=== PATIENT | male | born 1950 | race Caucasian/White ===

== ENCOUNTER 2016-11-26 08:03 | Emergency (ER) | payer MEDICARE ==
[2016-11-26 08:13] VITALS: TEMP 98.1
--- NOTE | 2016-11-26 09:14 | ED ---
Burn/Smoke HPI - General Chief complaint: Burn/Smoke Inhalation Stated complaint: Finger burn Time Seen by Provider: 11/26/16 08:57 Source: patient, RN notes reviewed Mode of arrival: ambulatory Limitations: no limitations - History of Present Illness Initial comments: 66 -year-old male presents emergency Department chief complaint of burn to left ring finger. Patient states he was working on his car his hand was touching the car battery it heated up his ring and he burned his finger. Patient states that he just needs a ring taken off. Patient states his pain is moderate. Patient states he did rinse and wash the area. If not fighting any cream to the area. They state that there is been no other symptoms in the patient. He states he is up-to-date on his tetanus. There is been no fever or chills. Patient states he was concerned because of the burned he does not have a care for suicidal they should be evaluated. Patient denies any recent fever, chills , shortness of breath, chest pain, back pain, abdominal pain, nausea vomiting, numbness or tingling, dysuria or hematuria, constipation or diarrhea, headaches or visual changes, or any other current symptoms. - Related Data Home Medications Medication Instructions Recorded Confirmed Gemfibrozil [Gemfibrozil] 600 mg PO HS 04/11/15 11/26/16 Atorvastatin [Lipitor] 10 mg PO MOWEFR 04/14/15 11/26/16 Acetaminophen [Tylenol] 325 mg PO Q4H PRN 11/26/16 11/26/16 Cephalexin [Keflex] 500 mg PO TID 11/26/16 11/26/16 Fexofenadine HCl 180 mg PO DAILY PRN 11/26/16 11/26/16 Glucosamine Sulfate 500 mg PO DAILY 11/26/16 11/26/16 Multivitamin [Men's Multi-Vitamin] 1 tab PO DAILY 11/26/16 11/26/16 Wheat Dextrin [Benefiber] 1 each PO DAILY PRN 11/26/16 11/26/16 Allergies Allergy/AdvReac Type Severity Reaction Status Date / Time No Known Allergies Allergy Verified 11/26/16 08:31 Review of Systems ROS Statement: Those systems with pertinent positive or pertinent negative responses have been documented in the HPI. ROS Other: All systems not noted in ROS Statement are negative. Past Medical History Past Medical History: Hyperlipidemia Additional Past Medical History / Comment(s): LEFT HERNIA History of Any Multi-Drug Resistant Organisms: None Reported Past Surgical History: Appendectomy, Hernia Repair Additional Past Surgical History / Comment(s): RT HERNIA, SKIN TAG REMOVAL Past Anesthesia/Blood Transfusion Reactions: No Reported Reaction Past Psychological History: No Psychological Hx Reported Smoking Status: Never smoker Past Alcohol Use History: None Reported Past Drug Use History: None Reported - Past Family History Father Family Medical History: Diabetes Mellitus General Exam - General Exam Comments Initial Comments: General: The patient is awake and alert, in no distress, and does not appear acutely ill. Neck: The neck is supple, there is no tenderness. Cardiovascular: There is a regular rate and rhythm. No murmur, rub or gallop is appreciated. Respiratory: Lungs are clear to auscultation, respirations are non-labored, breath sounds are equal. No wheezes, stridor, rales, or rhonchi. Musculoskeletal: Sensation intact with 2+ pulses. Left upper extremity. Full range of motion of the left wrist left hand and all fingers. Patient does appear to have circumferential second degree burn to the left ring finger. No sign of infection no drainage. Appears to be clean and healing. There is a blister to the lateral aspect of the right middle finger as well. Neurological: CN II-XII intact, There are no obvious motor or sensory deficits. Coordination appears grossly intact. Speech is normal. Skin: Skin is warm and dry and no rashes or lesions are noted. Psychiatric: Normal mood and affect. Limitations: no limitations Course Vital Signs 11/26/16 08:10 Temperature 98.1 F Pulse Rate 54 L Respiratory 20 Rate Blood Pressure 157/82 O2 Sat by Pulse 99 Oximetry Medical Decision Making - Medical Decision Making 66-year-old male presents for second degree circumferential burn of the left ring finger with blistering to the left middle finger as well. He appears to be HEENT induction type burn. We did discuss at this time there is a very small area that is actually burned and it does. Patient has great range of motion no difficulty in patient's pain is minimal. At this time we discussed with the patient the risk of a circumferential burn. We did discuss limited movement we did discuss concern for the extremity we did discuss risk of infection. It is time we discussed due to the limited area burned we can have the patient follow-up opposed to being transferred to a burn center. We informed the patient that he needs to follow-up within the next 24 hours to be reevaluated for the burn. We did discuss with the patient that he needs to keep an eye on the burn and we did discuss that we will give him the burn Center contact information in the area. We did discuss the importance of follow -up with discuss the risks of the mckinnon and we did discuss all the patient's questions. He stated that he did understood. He states that he will follow- up. He states he does have discharged home. At this time the patient does not have any other questions. At this time we will discharge the patient and his understanding of the importance of follow-up and the significance of injury. Disposition Clinical Impression: Partial thickness burn of left ring finger Disposition: HOME SELF-CARE Condition: Stable Instructions: Second Degree Burn (ED) Additional Instructions: Please use medication as discussed. Please follow up with family doctor if symptoms have not improved over the next two days. Please return to the emergency room if your symptoms increase or worsen or for any other concerns. Follow-up with your doctor in the next 24 hours or the burn center. He will see the attached information for phone numbers for the burn centers in the area. Referrals: Matty Erazo MD [Primary Care Provider] - 1-2 days Time of Disposition: 09:14
[2016-11-26 09:29] VITALS: BP 136/81; PULSE 52; RESP 16
== END 2016-11-26 09:33 | disposition home or self-care (01) ==
LOC: EC 08:03
DX: T23.222A Burn of second degree of single left finger (nail) except thumb, initial encounter (principal); T31.0 Burns involving less than 10% of body surface; W86.8XXA Exposure to other electric current, initial encounter; E78.5 Hyperlipidemia, unspecified; Z79.899 Other long term (current) drug therapy
CPT/HCPCS: 99283

== ENCOUNTER 2017-10-07 14:29 | Day surgery (SDC) | payer MEDICARE ==
[2017-09-26 16:06] VITALS: BMI 22.1
[~2017-10-07 14:29] MED LIST: DEXAMETHASONE SOD PHOSPHATE 10 MG/ML 1 ML VIAL IV ONE; HEPARIN SODIUM,PORCINE 5,000 UNIT/ML 1 ML VIAL SQ ONE; LACTATED RINGERS 1,000 ML IV SCH; MIDAZOLAM 2 MG/2 ML VIAL IV PRN; MORPHINE SULFATE 4 MG/ML SYRINGE IV PRN; ONDANSETRON 4 MG/2 ML VIAL IVP ONE; Pre Op ABX Message 1 EACH MISC MISCELLANE ONE
[2017-10-07] MEDS ORDERED: LIDOCAINE 1% 20 ML VIAL (10MG/ML) FOR IV START INTRADERMA ONE (15:00)
[2017-10-07 15:08] VITALS: BP 161/88; PULSE 53; TEMP 98.2
== END 2017-10-07 16:25 | disposition home or self-care (01) ==
LOC: OR 14:29
PROVIDERS: ATTEND Surgery
DX: L98.9 Disorder of the skin and subcutaneous tissue, unspecified (principal)
CPT/HCPCS: J1644; J1100; J2405

== ENCOUNTER → 2017-10-28 | Day surgery (SDC) | payer MEDICARE ==
[2017-10-20 12:44] VITALS: BMI 21.7
[~2017-10-28] MED LIST changes: +BACITRACIN 500 UNIT/GM OINT 28.4 GM TUBE TOPICAL ONE; +HYDROmorphone 0.5 MG/0.5 ML SYRINGE IVP PRN; +LIDOCAINE 1% 20 ML VIAL (10MG/ML) FOR IV START INTRADERMA PRN; +LIDOCAINE 1% INJ 10MG/ML (20 ML MDV) SQ ONE; -MIDAZOLAM 2 MG/2 ML VIAL IV PRN; +MIDAZOLAM 2 MG/2 ML VIAL ONE; -MORPHINE SULFATE 4 MG/ML SYRINGE IV PRN; +PROPOFOL 10 MG/ML 20 ML VIAL IV ONE; +fentaNYL (PF) 50 MCG/ML 2 ML AMP ONE
[2017-10-28 13:32] VITALS: RESP 16
--- NOTE | 2017-10-28 15:12 | P.OP ---
Date of Procedure: 10/28/17 Preoperative Diagnosis: skin lesion left oriental orthodox Postoperative Diagnosis: same Procedure(s) Performed: excision of skin lesion Anesthesia: MAC Surgeon: Mey Nava Estimated Blood Loss (ml): 1 IV fluids (ml): 300 Pathology: other (skin lesion sent) Condition: stable Disposition: PACU Indications for Procedure: dark skin lesion changing Operative Findings: skin lesion Description of Procedure: Patient was taken to operating room and following sedation the left oriental orthodox was prepped and draped in a sterile fashion. One percent lidocaine was used to anesthetize the area of concern. Wide excision was performed. This was carried through the skin and subcutaneous tissue. The lesion was excised. The deep tissues were closed using 3-0 Vicryl suture. The skin was closed using a nylon suture. Specimen was sent to pathology. The patient tolerated the procedure in stable condition.
--- NOTE | 2017-10-28 15:13 | P.DS ---
Providers Attending physician: Mey aNva Primary care physician: Matty Erazo Plan - Discharge Summary New Discharge Prescriptions: No Action Rosuvastatin Calcium 5 mg PO DAILY Silodosin [Rapaflo] 8 mg PO DAILY Discharge Medication List Rosuvastatin Calcium 5 mg PO DAILY 09/26/17 [History] Silodosin [Rapaflo] 8 mg PO DAILY 10/20/17 [History] Follow up Appointment(s)/Referral(s): Mey Nava MD [STAFF PHYSICIAN] - 1 Week Activity/Diet/Wound Care/Special Instructions: do not drive today patient may be in shower tomorrow Discharge Disposition: HOME SELF-CARE
[2017-10-28 15:40] VITALS: BP 119/70; PULSE 72
--- NOTE | 2017-10-31 07:59 | CDI ---
Outpatient Documentation Clarification Form Date: 10/31/2017 CDS/Elevator Constructor Electric Name: Alfredo Mcguire Phone: If any questions, call Beatriz Robles Cloud Physicist at [phone] Patient Name: Jairon Washington Admit Date: 10/28/2017 Discharge Date: 10/28/2017 ATTENTION: The [facility] Coding Staff appreciate your assistance in clarifying documentation. Please respond to the clarification below the line at the bottom and electronically sign. The [facility] Coding staff will review the response and follow-up if needed. Please note: Queries are made part of the Legal Health Record. If you have any questions, please contact the Cloud Physicist. Dear Dr. Nava, Operative report states skin lesion was excised, the size of the skin lesion, length of closure and depth of closure were missing in operative report. Based on your clinical opinion please mention size of the lesion, length and depth of closure. Thank you for your kind consideration. OTTO
--- NOTE | 2017-11-07 02:20 | CDI ---
Outpatient Documentation Clarification Form Date: 10/31/2017 CDS/Planner Intern Name: Alfredo Mcguire Phone: If any questions, call Beatriz Robles Design Analyst at [phone] Patient Name: Jairon Washington Admit Date: 10/28/2017 Discharge Date: 10/28/2017 ATTENTION: The [facility] Coding Staff appreciate your assistance in clarifying documentation. Please respond to the clarification below the line at the bottom and electronically sign. The [facility] Coding staff will review the response and follow-up if needed. Please note: Queries are made part of the Legal Health Record. If you have any questions, please contact the Design Analyst. Dear Dr. Nava, Operative report states skin lesion was excised, the size of the skin lesion, length of closure and depth of closure were missing in operative report. Based on your clinical opinion please mention size of the lesion, length and depth of closure. Thank you for your kind consideration. MTDD
--- NOTE | 2017-11-27 01:34 | CDI ---
Outpatient Documentation Clarification Form Date: 11/27/2017 CDS/Payroll Machine Operator Name: Alfredo Mcguire Phone: If any questions, call Beatriz Robles Machine Compositor at [phone] Patient Name: Jairon Washington Admit Date: 10/28/2017 Discharge Date: 10/28/2017 ATTENTION: The [facility] Coding Staff appreciate your assistance in clarifying documentation. Please respond to the clarification below the line at the bottom and electronically sign. The [facility] Coding staff will review the response and follow-up if needed. Please note: Queries are made part of the Legal Health Record. If you have any questions, please contact the Machine Compositor. Dear Dr. Nava, Operative report states skin lesion was excised, the size of the skin lesion, length of closure and depth of closure were missing in operative report. Based on your clinical opinion please mention size of the lesion, length and depth of closure. Thank you for your kind consideration. The size of the skin lesion excised was approximately 8 mm the actual excision was approximately 1.4 cm. The length of closure was 1.4 cm. The depth was to skin and subcutaneous tissue. MTDD
== END | disposition home or self-care (01) ==
LOC: OR 12:47
PROVIDERS: ATTEND Surgery
DX: L82.1 Other seborrheic keratosis (principal); F41.9 Anxiety disorder, unspecified; M19.90 Unspecified osteoarthritis, unspecified site; N40.0 Benign prostatic hyperplasia without lower urinary tract symptoms; E78.5 Hyperlipidemia, unspecified; Z79.899 Other long term (current) drug therapy; Z85.820 Personal history of malignant melanoma of skin
CPT/HCPCS: 11442; 12051; 88305; J2250; J1644; J1100; J2405; J2001; J3010; J2704